=== PATIENT | male | born 1965 | race Caucasian/White ===

== ENCOUNTER 2020-01-20 12:21 | Emergency (ER) | payer OTHER ==
[~2020-01-20] VITALS: Ht 188 cm; Wt 85.0 kg
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
--- NOTE | 2020-01-20 13:43 | NUR ---
Pt to imaging
[2020-01-20 14:09] LABS: BASOPHILS # (AUTO) 0.01 x10^3/uL (0-0.1); BASOPHILS % (AUTO) 0 % (0-1); EOSINOPHILS # (AUTO) 0.11 x10^3/uL (0-0.4); EOSINOPHILS % (AUTO) 3 % (1-7); LYMPHOCYTES # (AUTO) 1.15 x10^3/uL (1-3.4); LYMPHOCYTES % (AUTO) 33 % (22-44); MD NO; MEAN CORPUSCULAR HEMOGLOBIN 26.8 pg (27.5-34.5); MEAN PLATELET VOLUME 8.5 fL (7.4-10.4); MONOCYTES # (AUTO) 0.29 x10^3/uL (0.2-0.8); MONOCYTES % (AUTO) 8 % (2-9); NEUTROPHILS # (AUTO) 1.98 x10^3/uL (1.8-6.8); NEUTROPHILS % (AUTO) 56 % (42-75); PLATELET COUNT 147 x10^3/uL (130-400); RED BLOOD COUNT 5.56 x10^6/uL (4.38-5.82); RED CELL DISTRIBUTION WIDTH 15.1 % (9.4-14.8)
[2020-01-20 14:21] LABS: ALANINE AMINOTRANSFERASE 29 U/L (12-78); ALBUMIN 3.4 g/dL (3.4-5.0); ANION GAP 5 mmol/L (5-15); CALCIUM 8.9 mg/dL (8.5-10.1); CHLORIDE 109 mmol/L (98-107); CREATININE 0.91 mg/dL (0.7-1.3)
[2020-01-20 14:23] LABS: ALKALINE PHOSPHATASE 95 U/L (45-117); BILIRUBIN,TOTAL 0.9 mg/dL (0.2-1.0); SALICYLATE LEVEL < 1.7 mg/dL (2.8-20.0); TOTAL PROTEIN 7.4 g/dL (6.4-8.2)
[2020-01-20] MEDS ORDERED: SODIUM CHLORIDE FLUSH 10ML SYR IVF ONE (14:30)
--- NOTE | 2020-01-20 14:55 | NUR ---
PT resting in bed, call light in reach.
[2020-01-20 15:03] LABS: AMPHETAMINE SCREEN, URINE Positive (Negative); BARBITURATE SCREEN, URINE Negative (Negative); BENZODIAZEPINE SCREEN, URINE Negative (Negative); CANNABINOID SCREEN, URINE Negative (Negative); OPIATE SCREEN, URINE Negative (Negative)
[2020-01-20 15:04] LABS: COCAINE SCREEN, URINE Negative (Negative); METHADONE SCREEN, URINE Negative (Negative)
[2020-01-20 15:09] LABS: MICROSCOPIC INDICATED
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
--- NOTE | 2020-01-20 16:30 | NUR ---
Break RN note: Pt resting in bed, NADN. Pt requesting food, denies other needs.
--- NOTE | 2020-01-20 16:38 | NUR ---
Break RN note: Pt provided crackers and water per request, ok per Dr. Al. PIV dc'd with tip intact per MD, pt to be dc'd home. Pt provided education about importance of not using meth anymore.
[2020-01-20 16:54] VITALS: BP 127/92
--- NOTE | 2020-01-20 17:06 | NUR ---
Patient given discharge instructions, clothing, and bus pass and they have confirmed that they understand the instructions, all questions answered. Patient wheeled to discharge desk, where he then ambulated out of ER lobby to bus stop.
== END 2020-01-20 17:07 | disposition home or self-care (01) ==
LOC: ED 17:00
DX: M25.511 Pain in right shoulder (principal); R51 Headache; R55 Syncope and collapse; F15.129 Other stimulant abuse with intoxication, unspecified; G89.29 Other chronic pain; W01.0XXA Fall on same level from slipping, tripping and stumbling without subsequent striking against object, initial encounter; Y93.89 Activity, other specified; Y92.098 Other place in other non-institutional residence as the place of occurrence of the external cause; Y99.8 Other external cause status
CPT/HCPCS: 36415; 70450; 71045; 80053; 80307; 81001; 85025; 87086; 99285